=== PATIENT | female | born 1985 | race American Indian/Alaskan Native ===

== ENCOUNTER 2018-01-07 20:21 | Emergency (ER) | payer MEDICAID ==
[2018-01-07 21:32] LABS: Basophils % (Auto) 0.5 % (0.0-1.8); Eosinophils # (Auto) 0.2 K/mm3 (0.0-0.4); Eosinophils % (Auto) 2.8 % (0.0-4.3); Hematocrit 41.9 % (30.3-42.9); Hemoglobin 14.2 gm/dl (10.1-14.3); Lymphocytes # (Auto) 3.6 K/mm3 (1.2-5.4); Lymphocytes % (Auto) 42.4 % (13.4-35.0); Mean Corpuscular HGB Conc 34 % (30-34); Mean Corpuscular Hemoglobin 31 pg (28-32); Mean Corpuscular Volume 93 fl (79-97); Monocytes # (Auto) 0.7 K/mm3 (0.0-0.8); Monocytes % (Auto) 7.9 % (0.0-7.3); Platelet Count 248 K/mm3 (140-440); Red Blood Count 4.52 M/mm3 (3.65-5.03); Red Cell Distribution Width 13.2 % (13.2-15.2)
[2018-01-07 21:54] LABS: Bilirubin,Urine NEG (Negative); Blood,Urine NEG (Negative); Color,Urine Yellow (Yellow); Mucus,Urine 2+ /HPF; Protein,Urine <15 mg/dL mg/dL (Negative); Urobilinogen,Urine < 2.0 mg/dL (<2.0)
--- NOTE | 2018-01-07 23:50 | Emergency Department Report ---
ED Female HPI - General Chief complaint: Vaginal Bleeding Stated complaint: VAG BLEEDING 4 WEEKS Time Seen by Provider: 01/07/18 23:44 Source: patient, RN notes reviewed Mode of arrival: Ambulatory Limitations: No Limitations - History of Present Illness Initial comments: This is a 32-year-old female who was previously on known to this provider. Gynecology: "[facility]" The patient denies past medical history, previously on On implanon implant--> recently given a depo shot. Since to the ER with a complaint for vaginal bleeding for 4 weeks. She has used 6 pads in the past 24 hours. Denies urinary symptoms. Denies headache, neck pain, chest pain, shortness of breath, lightheadedness, syncope. The bleeding does not radiate anywhere, is cramping in nature, and does not have exacerbating or relieving factors. MD Complaint: vaginal bleeding, pelvic pain -: Gradual, week(s) Location: suprapubic Severity: mild Quality: cramping Consistency: intermittent Improves with: none Worsens with: none Are you Now?: No Associated Symptoms: vaginal bleeding, abdominal pain. denies: vaginal discharge, nausea/vomiting, fever/chills, headaches, loss of appetite, dysuria, hematuria, rash, seizure, shortness of breath, syncope, weakness - Related Data Sexually active: Yes Home Medications Medication Instructions Recorded Confirmed Last Taken No Known Home Medications [No 09/11/16 09/11/16 Unknown Reported Home Medications] Allergies Allergy/AdvReac Type Severity Reaction Status Date / Time No Known Allergies Allergy Unverified 08/31/16 16:02 ED Review of Systems ROS: Stated complaint: VAG BLEEDING 4 WEEKS Other details as noted in HPI Comment: All other systems reviewed and negative ED Past Medical Hx - Past Medical History Previous Medical History?: Yes Hx Hypertension: No Hx Congestive Heart Failure: No Hx Diabetes: No Hx Deep Vein Thrombosis: No Hx Renal Disease: No Hx Sickle Cell Disease: No Hx Seizures: No Hx Asthma: No Hx COPD: No Hx HIV: No Additional medical history: Preeclampsia, gestational DM - Surgical History Past Surgical History?: Yes Hx Appendectomy: Yes Additional Surgical History: laminectomy, knee shaved, GI - Social History Smoking Status: Current Every Day Smoker Substance Use Type: Marijuana - Medications Home Medications: Home Medications Medication Instructions Recorded Confirmed Last Taken Type No Known Home Medications [No 09/11/16 09/11/16 Unknown History Reported Home Medications] ED Physical Exam - General Limitations: No Limitations General appearance: alert, in no apparent distress - Head Head exam: Present: atraumatic, normocephalic - Eye Eye exam: Present: normal appearance, EOMI. Absent: nystagmus - ENT ENT exam: Present: normal exam, normal orophraynx, mucous membranes moist, normal external ear exam - Neck Neck exam: Present: normal inspection, full ROM - Respiratory Respiratory exam: Present: normal lung sounds bilaterally. Absent: respiratory distress - Cardiovascular Cardiovascular Exam: Present: regular rate, normal rhythm, normal heart sounds. Absent: systolic murmur, diastolic murmur, rubs, gallop - GI/Abdominal GI/Abdominal exam: Present: soft, normal bowel sounds. Absent: distended, tenderness, guarding, rebound, rigid, pulsatile mass - External exam: Present: normal external exam Speculum exam: Present: normal speculum exam, vaginal bleeding Bi-manual exam: Present: other (escorted by nurse PARAG MORAES). Absent: cervical motion tendernes, adnexal tenderness, adnexal mass, uterine enlargement , uterine tenderness - Extremities Exam Extremities exam: Present: normal inspection, full ROM, normal capillary refill. Absent: tenderness, pedal edema, joint swelling, calf tenderness - Back Exam Back exam: Present: normal inspection, full ROM. Absent: tenderness, CVA tenderness (R), paraspinal tenderness, vertebral tenderness - Neurological Exam Neurological exam: Present: alert, oriented X3, CN II-XII intact, normal gait, other (Extraocular movements intact. Tongue midline. No facial droop. Facial sensation intact to light touch in the V1, V2, V3 distribution bilaterally. 5 and 5 strength in 4 extremities.. Sensation is intact to light touch in 4 extremities.). Absent: motor sensory deficit - Psychiatric Psychiatric exam: Present: normal affect, normal mood - Skin Skin exam: Present: warm, dry, intact, normal color. Absent: rash ED Course Vital Signs 01/07/18 01/07/18 01/07/18 20:42 21:01 23:37 Temperature 99.0 F 99 F Pulse Rate 70 71 50 L Respiratory 16 16 20 Rate Blood Pressure 139/94 134/94 Blood Pressure 121/76 [Left] O2 Sat by Pulse 99 99 100 Oximetry ED Medical Decision Making - Lab Data Result diagrams: 01/07/18 21:18 Vital Signs 01/07/18 01/07/18 01/07/18 20:42 21:01 23:37 Temperature 99.0 F 99 F Pulse Rate 70 71 50 L Respiratory 16 16 20 Rate Blood Pressure 139/94 134/94 Blood Pressure 121/76 [Left] O2 Sat by Pulse 99 99 100 Oximetry Lab Results 01/07/18 01/07/18 01/07/18 Range/Units 21:18 21:18 21:18 WBC 8.5 (4.5-11.0) K/mm3 RBC 4.52 (3.65-5.03) M/mm3 Hgb 14.2 (10.1-14.3) gm/dl Hct 41.9 (30.3-42.9) % MCV 93 (79-97) fl MCH 31 (28-32) pg MCHC 34 (30-34) % RDW 13.2 (13.2-15.2) % Plt Count 248 (140-440) K/mm3 Lymph % (Auto) 42.4 H (13.4-35.0) % [place] % (Auto) 7.9 H (0.0-7.3) % Eos % (Auto) 2.8 (0.0-4.3) % Baso % (Auto) 0.5 (0.0-1.8) % Lymph # 3.6 (1.2-5.4) K/mm3 [place] # 0.7 (0.0-0.8) K/mm3 Eos # 0.2 (0.0-0.4) K/mm3 Baso # 0.0 (0.0-0.1) K/mm3 Seg Neutrophils % 46.4 (40.0-70.0) % Seg Neutrophils # 3.9 (1.8-7.7) K/mm3 HCG, Quant < 2 (0-4) mIU/mL Urine Color (Yellow) Urine Turbidity (Clear) Urine pH (5.0-7.0) Ur Specific [place] (1.003-1.030) Urine Protein (Negative) mg/dL Urine Glucose (UA) (Negative) mg/dL Urine Ketones (Negative) mg/dL Urine Blood (Negative) Urine Nitrite (Negative) Urine Bilirubin (Negative) Urine Urobilinogen (<2.0) mg/dL Ur Leukocyte Esterase (Negative) Urine WBC (Auto) (0.0-6.0) /HPF Urine RBC (Auto) (0.0-6.0) /HPF U Epithel Cells (Auto) (0-13.0) /HPF Urine Mucus /HPF Blood Type B POSITIVE Antibody Screen Negative 01/07/18 Range/Units Unknown WBC (4.5-11.0) K/mm3 RBC (3.65-5.03) M/mm3 Hgb (10.1-14.3) gm/dl Hct (30.3-42.9) % MCV (79-97) fl MCH (28-32) pg MCHC (30-34) % RDW (13.2-15.2) % Plt Count (140-440) K/mm3 Lymph % (Auto) (13.4-35.0) % [place] % (Auto) (0.0-7.3) % Eos % (Auto) (0.0-4.3) % Baso % (Auto) (0.0-1.8) % Lymph # (1.2-5.4) K/mm3 [place] # (0.0-0.8) K/mm3 Eos # (0.0-0.4) K/mm3 Baso # (0.0-0.1) K/mm3 Seg Neutrophils % (40.0-70.0) % Seg Neutrophils # (1.8-7.7) K/mm3 HCG, Quant (0-4) mIU/mL Urine Color Yellow (Yellow) Urine Turbidity Clear (Clear) Urine pH 5.0 (5.0-7.0) Ur Specific [place] 1.031 H (1.003-1.030) Urine Protein <15 mg/dl (Negative) mg/dL Urine Glucose (UA) Neg (Negative) mg/dL Urine Ketones Tr (Negative) mg/dL Urine Blood Neg (Negative) Urine Nitrite Neg (Negative) Urine Bilirubin Neg (Negative) Urine Urobilinogen < 2.0 (<2.0) mg/dL Ur Leukocyte Esterase Tr (Negative) Urine WBC (Auto) 2.0 (0.0-6.0) /HPF Urine RBC (Auto) 2.0 (0.0-6.0) /HPF U Epithel Cells (Auto) 1.0 (0-13.0) /HPF Urine Mucus 2+ /HPF Blood Type Antibody Screen - Medical Decision Making Differential diagnosis, including without limited to: Anemia, , menstruation, dysfunctional uterine bleeding Assessment and plan: 32-year-old female with 4 weeks of vaginal bleeding. She is afebrile with reassuring vital signs, has a benign physical examination, has a hemoglobin and hematocrit that does not require packed red blood cell transfusion. Her abdominal exam is benign, and her gynecologic exam is benign. The patient is instructed to continue current outpatient medications, and to follow-up with her outpatient locomotive driver for further evaluation and management. Critical care attestation.: If time is entered above; I have spent that time in minutes in the direct care of this critically ill patient, excluding procedure time. ED Disposition Clinical Impression: Vaginal bleeding Disposition: DC-01 TO HOME OR SELFCARE Is pt being admited?: No Does the pt Need Aspirin: No Condition: Stable Instructions: Dysfunctional Uterine Bleeding (ED) Additional Instructions: Continue current outpatient medications. Follow-up with your locomotive driver within the next 3-4 weeks. Return to the ER right away with new pain, worsened pain, migration of pain, bleeding more than 2 pads soaked per hour, lightheadedness, dizziness, chest pain, shortness of breath, loss of consciousness. Referrals: [facility] [Provider Group] - 3-5 Days
[2018-01-08 01:26] VITALS: BP 129/84
== END 2018-01-08 01:27 | disposition home or self-care (01) ==
LOC: ED 20:21
DX: N93.9 Abnormal uterine and vaginal bleeding, unspecified (principal); F17.200 Nicotine dependence, unspecified, uncomplicated; F12.10 Cannabis abuse, uncomplicated
CPT/HCPCS: 36415; 81001; 84702; 85025; 86850; 86900; 86901; 99284

== ENCOUNTER 2018-11-12 10:16 | Day surgery (SDC) | payer MEDICAID, OTHER ==
--- NOTE | 2018-11-12 09:40 | History and Physical Report ---
History of Present Illness History of present illness: Patient desires sterilization.Discuss the permanency of sterilization. High risk of regret and 0.5 to 1% risk of failure. Discussed the different risk of abdominal versus vaginal approaches Patient desires laparoscopic tubal ligation Vital Signs: Patient Profile: 33 Years Old Female Height: 67 inches (170.18 cm) Weight: 168 pounds (76.36 kg) BMI: 26.31 Past History : 10 Term Births: 4 Living Children: 4 Para: 4 Aborta: 6 Elect. Ab: 4 Spont. Ab: 2 # 1 Delivery date: 10/13/1999 Delivery type: SAB # 2 Delivery date: 01/11/2001 Delivery type: EAB # 3 Delivery date: 01/11/2001 Delivery type: EAB # 4 Delivery date: 05/18/2004 Weeks Gestation: 40 labor: no Delivery type: Anesthesia type: epidural Delivery location: [facility] Infant Sex: Female weight: 8-1 Name: Megan Comments: GDM, PreE, del prior to induction date # 5 Delivery date: 01/11/2005 Delivery type: EAB # 6 Delivery date: 01/11/2007 Delivery type: EAB # 7 Delivery date: 11/29/2013 Weeks Gestation: 40 Delivery type: Anesthesia type: epidural Delivery location: [facility] Sex: Female weight: 6-123 Name: Aura Comments: HTN # 8 Delivery date: 06/01/2015 Delivery type: Anesthesia type: none Delivery location: [facility] Sex: Female weight: 7-9 Name: Emily Comments: precipitous delivery >3 hrs # 9 Delivery date: 10/13/2015 Delivery type: SAB Comments: 1st trimester # 10 Delivery date: 09/11/2016 Weeks Gestation: 40 Delivery type: Vaginal Anesthesia type: none Delivery location: [facility] Infant Sex: female weight: 8.13 Comments: elevated BP 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 of genital herpes: no Partner hx. of genital herpes: no Hx of STD: none Active Medications (reviewed today): None Current Allergies (reviewed today): No known allergies Past Medical History: Lefty Vargas Past Surgical History: Appendectomy Back surgery (2009) Right Knee Arthroscopy Family History Summary: No Known Family History - Entered On: 09/24/2018 Social History: Patient is single Smoking History: Patient has never smoked. Risk Factors: Smoked Tobacco Use: Never smoker Passive smoke exposure: no Drug use: yes HIV high-risk behavior: no Alcohol use: no Exercise: no Seatbelt use: 100 % Review of Systems General Denies fever, chills, sweats, anorexia, fatigue, weakness, malaise, weight loss and sleep disorder. Denies vaginal discharge, incontinence, dysuria, hematuria, urinary frequency, amenorrhea, menorrhagia, abnormal vaginal bleeding, pelvic pain, genital sores, decreased libido, painful periods, painful sex, urinary urgency, hot flashes, vaginal dryness, vaginal itching and vaginal odor. CV Denies chest pains, palpitations, syncope, dyspnea on exertion, orthopnea, PND and peripheral edema. Resp Denies cough, dyspnea at rest, excessive sputum, hemoptysis, wheezing and pleurisy. GI Denies nausea, vomiting, diarrhea, constipation, change in bowel habits, abdominal pain, melena, hematochezia, jaundice, gas/bloating, indigestion/heartburn, dysphagia and odynophagia. Breast Denies left breast lump, right breast lump, nipple discharge, bloody discharge from nipple, breast pain, abnormal mammogram and breast enlargement. Psych Denies depression, anxiety, irritability and mood swings. Medications and Allergies Allergies Allergy/AdvReac Type Severity Reaction Status Date / Time No Known Allergies Allergy Unverified 11/09/18 17:00 Home Medications Medication Instructions Recorded Confirmed Last Taken Type No Known Home Medications [No 09/11/16 11/09/18 Unknown History Reported Home Medications] Exam - Physical Exam Narrative exam: EENT: normocephalic, no lesions or deformities Skin no ulcers, xanthomas Chest: respiratory effort normal, clear to auscultation Breasts: no masses or nipple discharge CV: regular, normal S1-S2, no murmur, no rub, no gallop Abdomen: soft, non-tender, no masses, bowel sounds normal Musculoskeletal: grossly normal ROM in joints, no joint tenderness or muscle weakness Neuro: no gross anomalities Extremities: normal alignment, no joint enlargement, crepitus, masses or tenderness; normal tone and 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 No evidence of cystocele or rectocele. Cervix: normal appearance, no lesions, no discharge Uterus: normal position, midline, mobile Adnexae: no masses or tenderness Rectovaginal: exam defered Assessment and Plan - Patient Problems (1) Encounter for sterilization Status: Acute Plan to address problem: Discuss the risks of the surgery including infection, bleeding possibly heavy enough to require a blood transfusion, possible damage to adjacent organs. Discuss permanent nature of the procedure and the 1% failure rate. Discuss of possibility of laparotomy needed. Patient understands and desires to proceed.
[2018-11-12] MEDS ORDERED: NACL BACTERIOSTATIC INFILTRATI ONE (10:43)
[2018-11-12] MEDS ORDERED: VERSED IV NR (10:56)
[2018-11-12] MEDS ORDERED: PROVENTIL IH NR (11:00)
[2018-11-12] MEDS ORDERED: LACTATED RINGERS 1,000 ML IV SCH (11:00)
[2018-11-12] MEDS ORDERED: NEURONTIN PO NR (11:00)
--- NOTE | 2018-11-12 11:28 | Anesthesia Consultation ---
Anesthesia Consult and Med Hx Date of service: 11/12/18 - Airway Anesthetic Teeth Evaluation: Good (broken left upper molar; no loose teeth ) ROM Head & Neck: Adequate Mental/Hyoid Distance: Adequate Mallampati Class: Class I Intubation Access Assessment: Good - Pulmonary Exam CTA: Yes - Cardiac Exam Cardiac Exam: RRR - Pre-Operative Health Status ASA Pre-Surgery Classification: ASA2 Proposed Anesthetic Plan: General - Pulmonary Hx Smoking: Yes (10/16-10/14 PPD) Hx Asthma: Yes (childhood; no recent inhaler use) Hx Respiratory Symptoms: No COPD: No - Cardiovascular System Hx Hypertension: No Hx Heart Attack/AMI: No Hx Percutaneous Transluminal Coronary Angioplasty (PTCA): No - Central Nervous System Hx Seizures: No CVA: No Hx Psychiatric Problems: Yes (dissociative identity disorder) - Gastrointestinal Hx Gastroesophageal Reflux Disease: No - Endocrine Hx Renal Disease: No Hx Liver Disease: No Hx Insulin Dependent Diabetes: No Hx Non-Insulin Dependent Diabetes: No Hx Thyroid Disease: No - Other Systems Hx Alcohol Use: Yes (Occas) Hx Substance Use: Yes (Marijuana daily) Hx Obesity: No - Additional Comments Anesthesia Medical History Comments: No hx anesthetic complications.
--- NOTE | 2018-11-12 11:28 | Anesthesia Day of Surgery ---
Anesthesia Day of Surgery - Day of Surgery Patient Examined: Yes Patient H&P Reviewed: Yes Patient is NPO: Yes
[2018-11-12 11:37] LABS: Hematocrit 40.6 % (30.3-42.9); Hemoglobin 13.8 gm/dl (10.1-14.3)
[2018-11-12] MEDS ORDERED: DIPRIVAN 10 MG/ML IV ONE (12:00)
[2018-11-12] MEDS ORDERED: SUBLIMAZE ONE (12:00)
[2018-11-12] MEDS ORDERED: DECADRON ONE (12:07)
[2018-11-12] MEDS ORDERED: XYLOCAINE MPF 2% ONE (12:07)
[2018-11-12] MEDS ORDERED: MARCAINE 0.5% INFILTRATI ONE ×2 (12:07→13:15)
[2018-11-12] MEDS ORDERED: ZOFRAN ONE ×2 (12:07→14:45)
[2018-11-12] MEDS ORDERED: DILAUDID ONE (12:57)
[2018-11-12] MEDS ORDERED: NACL 0.9% IR ONE (13:15)
[2018-11-12] MEDS ORDERED: ROBINUL ONE (13:16)
[2018-11-12] MEDS ORDERED: BLOXIVERZ ONE (13:16)
[2018-11-12] MEDS ORDERED: TORADOL ONE (13:18)
--- NOTE | 2018-11-12 13:33 | Short Stay Summary ---
Short Stay Documentation Date of service: 11/12/18 - History H&P: dictated - Allergies and Medications Current Medications: Allergies No Known Allergies Allergy (Unverified 11/09/18 17:00) Home Medications Medication Instructions Recorded Confirmed Last Taken Type No Known Home Medications [No 09/11/16 11/09/18 Unknown History Reported Home Medications] Active Medications Albuterol (Proventil) 2.5 mg IH PREOP NR Stop: 11/12/18 16:00 Last Admin: 11/12/18 11:10 Dose: 2.5 mg Documented by: Celecoxib (Celebrex) 200 mg PO PREOP NR Stop: 11/12/18 16:00 Last Admin: 11/12/18 11:15 Dose: 200 mg Documented by: Gabapentin (Neurontin) 300 mg PO PREOP NR Stop: 11/12/18 16:00 Last Admin: 11/12/18 11:15 Dose: 300 mg Documented by: Hydromorphone HCl (Dilaudid) 0.5 mg IV Q10MIN PRN PRN Reason: Pain , Severe (7-10) Stop: 11/12/18 23:59 Lactated Ringer's (Lactated Ringers) 1,000 mls @ 75 mls/hr IV DIRECT KEVIN Last Admin: 11/12/18 11:20 Dose: 75 mls/hr Documented by: Midazolam HCl (Versed) 2 mg IV ONCE NR Stop: 11/12/18 20:00 Last Admin: 11/12/18 11:20 Dose: 2 mg Documented by: - Brief post op/procedure progress note Date of procedure: 11/12/18 (See dictated operative note) - Hospital course Hospital course: Patient was admitted underwent the above him procedure without any complications. Patient will be discharged with follow-up in office in 1-2 weeks for postop check. - Disposition Condition at discharge: Good Disposition: DC-01 TO HOME OR SELFCARE - Discharge Diagnoses (1) Encounter for sterilization Status: Acute Short Stay Discharge Plan Activity: no restrictions Diet: regular Wound: open to air Additional Instructions: Patient called office for fever or chills nausea or vomiting or pain not relieved with pain medicine Follow up with: MAVERICK ANG MD [Primary Care Provider] - 7 Days Prescriptions: oxyCODONE /ACETAMINOPHEN [Percocet 5/325 mg] 1 - 2 tab PO Q4H PRN #20 tablet PRN Reason: Pain, Moderate
--- NOTE | 2018-11-12 13:36 | Operative Report ---
Operative Report Operative Report: Pre-operative diagnosis: Patient desires permanent sterilization Post-operative diagnosis: Same Procedure name(s): Laparoscopic bilateral tubal ligation with Falope-Rings Surgeon: Donovan Archer MD Surgical Assist: [] Anesthesia: General endotracheal EBL: Minimal Complications: None Findings: Patient with uterus approximately 8-10 weeks in size with normal fallopian tubes bilaterally Specimen(s): None Patient was brought in the operating room. General anesthesia was induced without difficulty. She was placed in dorsal lithotomy position. Prepped and draped in usual sterile manner. Her urinary bladder with was emptied with a red rubber catheter. Speculum placed in her vagina and Sargis uterine manipulator was placed for uterine manipulation. Attention was then switched to the patient's abdomen. An infra-umbilical incision was made with a scalpel. This incision was spread with a hemostat. A 5 mm trocar was placed in this incision while lifting high the abdominal wall. Intra-abdominal presence was verified directly with the laparoscope. The patient was then insufflated to approximately 3 L of CO2 gas. The patient's findings as noted above. An accessory puncture was made suprapubically. The 8 mm trocar was placed through this incision under direct visualization with no evidence of internal organ damage. Each of the fallopian tube were identified by its fimbriated end. A portion approximately 1-2 cm from each cornua was grasped with the Falope ring applicator. Falope-Rings were placed first on the patient's right tube where both Falope-Rings discharge without any difficulty bilaterally. The device was reloaded and single Falope ring was placed on the left fallopian tube. At this time all instruments were removed. The patient was deinsufflated. The skin incisions were closed subcuticular with 4-0 Vicryl. Marcaine was given subcuticularly for postoperative pain relief. The patient tolerated procedure well. She was awakened in the operating room and accompanied to the recovery room in good condition.
[2018-11-12] MEDS ORDERED: DEMEROL ONE (13:41)
[2018-11-12] MEDS: DILAUDID IV PRN ×4 (13:47→14:20)
[2018-11-12] MEDS ORDERED: PERCOCET 5/325 PO PRN (14:26)
[2018-11-12] MEDS ORDERED: ZOFRAN IM PRN (15:00)
[2018-11-12] MEDS ORDERED: ZOFRAN IV PRN (15:00)
--- NOTE | 2018-11-12 15:05 | Post Anesthesia Evaluation ---
- Post Anesthesia Evaluation Patient Participated: Yes Airway Patent: Yes Stable Respiratory Function: Yes Nausea/Vomiting: No Temp > 96.8F: Yes Pain Manageable: Yes Adequeate Hydration: Yes Anesthesia Complications: No
[2018-11-12] MEDS ORDERED: REGLAN IV PRN (15:32)
[2018-11-12 16:31] VITALS: BP 124/65
== END 2018-11-12 16:20 | disposition home or self-care (01) ==
LOC: OR 10:16
PROVIDERS: ATTEND Obstetrics & Gynecology
DX: Z30.2 Encounter for sterilization (principal); I10 Essential (primary) hypertension; G43.909 Migraine, unspecified, not intractable, without status migrainosus; J45.909 Unspecified asthma, uncomplicated; K21.9 Gastro-esophageal reflux disease without esophagitis; F17.210 Nicotine dependence, cigarettes, uncomplicated; Z90.49 Acquired absence of other specified parts of digestive tract; Z72.89 Other problems related to lifestyle; Z98.890 Other specified postprocedural states; Z80.8 Family history of malignant neoplasm of other organs or systems; Z79.899 Other long term (current) drug therapy
CPT/HCPCS: 36415; 58671; 81025; 85014; 85018; J1100; J1170; J1885; J2175; J2250; J2405; J2704; J2710; J2765; J3010; J7120

== ENCOUNTER 2018-12-06 12:00 | Emergency (ER) | payer OTHER ==
[2018-12-06 12:08] VITALS: BP 140/86
--- NOTE | 2018-12-06 12:08 | Emergency Department Report ---
Blank Doc - Documentation Documentation: This is a 33-year-old female that presents with pain in the incision site from tubal ligation that was on 11/12/2018. Agrees to having a postop follow-up with MD within normal limits. Stated saw some drainage. Denies any other complaints. Exam: no swelling or abscess noted. No pus or drainage. No visualization of open wound. This initial assessment diagnostic orders/clinical plan/treatment(s) is/are subject to change based on patient's health status, clinical progression and re- assessment by fellow clinical providers in the ED. Further treatment and workup at subsequent clinical providers discretion. Patient/guardians urged not to elope from ED s their condition may be serious if not clinically assessed and managed. Initial orders include: 1-Patient sent to [facility] for further evaluation and treatment
--- NOTE | 2018-12-06 12:42 | Emergency Department Report ---
ED General Adult HPI - General Chief complaint: Wound/Laceration Stated complaint: INCISION DRAINAGE Time Seen by Provider: 12/06/18 12:02 Source: patient Mode of arrival: Ambulatory Limitations: No Limitations - History of Present Illness Initial comments: Patient is a 33-year-old female who had a laparoscopic tubal ligation performed partially 3 weeks ago. Patient states she's had her postop follow-up. Patient states that for the past 2-3 days she's had some increased pain at the umbilicus and yesterday while at work she had some drainage from the umbilicus. Patient states it was a purulent material drained.. Patient denies any nausea vomiting fevers or chills. Patient has had not had any drainage the last 12 hours. Patient states pain is only with palpation to the umbilicus and is a 4 out of 10 in severity. Severity scale (0 -10): 4 - Related Data Previous Rx's Medication Instructions Recorded Last Taken Type oxyCODONE /ACETAMINOPHEN [Percocet 1 - 2 tab PO Q4H PRN #20 tablet 11/12/18 Unknown Rx 5/325 mg] Clindamycin [Clindamycin CAP] 300 mg PO Q8H 7 Days cap 12/06/18 Unknown Rx Ibuprofen [Motrin] 800 mg PO Q8HR PRN #20 tablet 12/06/18 Unknown Rx Allergies Allergy/AdvReac Type Severity Reaction Status Date / Time No Known Allergies Allergy Unverified 11/09/18 17:00 ED Review of Systems ROS: Stated complaint: INCISION DRAINAGE Other details as noted in HPI Comment: All other systems reviewed and negative ED Past Medical Hx - Past Medical History Previous Medical History?: Yes Hx Hypertension: No Hx Heart Attack/AMI: No Hx Congestive Heart Failure: No Hx Diabetes: Yes (Gestational only) Hx Deep Vein Thrombosis: No Hx GERD: Yes (Past hx/STATES AFTER 1ST CHILD BUT NO PROBLEM NOW) Hx Liver Disease: No Hx Renal Disease: No Hx Headaches / Migraines: Yes (Migraines) Hx Seizures: No Hx Asthma: Yes (childhood; no recent inhaler use) Hx COPD: No Hx HIV: No Additional medical history: Preeclampsia, gestational DM - Surgical History Past Surgical History?: Yes Hx Appendectomy: Yes Additional Surgical History: laminectomy, knee shaved, GI, tubal ligation 11/12/18 - Social History Smoking Status: Current Every Day Smoker Substance Use Type: Alcohol, Marijuana - Medications Home Medications: Home Medications Medication Instructions Recorded Confirmed Last Taken Type oxyCODONE /ACETAMINOPHEN [Percocet 1 - 2 tab PO Q4H PRN #20 tablet 11/12/18 Unknown Rx 5/325 mg] Clindamycin [Clindamycin CAP] 300 mg PO Q8H 7 Days cap 12/06/18 Unknown Rx Ibuprofen [Motrin] 800 mg PO Q8HR PRN #20 tablet 12/06/18 Unknown Rx ED Physical Exam - General Limitations: No Limitations General appearance: alert, in no apparent distress - Head Head exam: Present: atraumatic, normocephalic - Eye Eye exam: Present: normal appearance - ENT ENT exam: Present: mucous membranes moist - Neck Neck exam: Present: normal inspection - Respiratory Respiratory exam: Present: normal lung sounds bilaterally. Absent: respiratory distress, wheezes, rales - Cardiovascular Cardiovascular Exam: Present: regular rate, normal rhythm. Absent: systolic murmur, diastolic murmur, rubs, gallop - GI/Abdominal GI/Abdominal exam: Present: soft, tenderness (at the umbilicus. There is no active drainage at this time. There is no redness to the skin. Patient does have some crusty serous type material within the canal.), normal bowel sounds. Absent: distended, guarding, rebound - Extremities Exam Extremities exam: Present: normal inspection - Back Exam Back exam: Present: normal inspection - Neurological Exam Neurological exam: Present: alert, oriented X3 - Psychiatric Psychiatric exam: Present: normal affect, normal mood - Skin Skin exam: Present: warm, dry, intact, normal color. Absent: rash ED Course Vital Signs 12/06/18 12:05 Temperature 98 F Pulse Rate 81 Respiratory 16 Rate Blood Pressure 140/86 [Right] O2 Sat by Pulse 100 Oximetry ED Medical Decision Making - Medical Decision Making Patient likely with a small abscess versus seroma. Because of the pain patient be started on antibiotics in patient be discharged home. Critical care attestation.: If time is entered above; I have spent that time in minutes in the direct care of this critically ill patient, excluding procedure time. ED Disposition Clinical Impression: Abscess or cellulitis of umbilicus Disposition: TO HOME OR SELFCARE Is pt being admited?: No Does the pt Need Aspirin: No Condition: Stable Instructions: Cellulitis (ED) Referrals: INO SIERRA MD [Primary Care Provider] - 3-5 Days Forms: Work/School Release Form(ED) Time of Disposition: 12:43
== END 2018-12-06 12:47 | disposition home or self-care (01) ==
LOC: ED 12:00
DX: L02.216 Cutaneous abscess of umbilicus (principal); K21.9 Gastro-esophageal reflux disease without esophagitis; G43.909 Migraine, unspecified, not intractable, without status migrainosus; J45.909 Unspecified asthma, uncomplicated; F12.10 Cannabis abuse, uncomplicated; F17.200 Nicotine dependence, unspecified, uncomplicated; Z90.89 Acquired absence of other organs; Z98.51 Tubal ligation status
CPT/HCPCS: 99282